=== PATIENT | female | born 1955 | race Caucasian/White ===

== ENCOUNTER 2017-12-28 22:14 | Emergency (ER) | payer OTHER ==
[2017-12-28 22:23] VITALS: BP 135/77; PULSE 82; TEMP 98; BMI 32.9
--- NOTE | 2017-12-29 00:26 | PDOC ---
History of Present Illness - General Chief Complaint: Pain Stated Complaint: PAIN Time Seen by Provider: 12/29/17 00:12 History Source: Patient, Family - History of Present Illness Initial Comments: 12/29/17 00:20 62yoF undergoing extensive outpatient w/u for chronic refulx, followed by GI. Harris for severe reflux pain. Pt recently had an Omeprazole Rx filled by her pharmacy, but she is stating she is concerned hat the pill looks very different from prior omeprazole prescriptions and it is not helping her pain at all. She is seeking pain relief for her typical stomach acid pain. Pill ID shows that instead of omeprazole, pt has a bottle of gabapentin 300mg capsules. Pt also states that she has been on Flagyl but didn't realize she was supposed to take the medication TID, has only been taking once daily. Only 3 tabs left in bottle. pmhx : known gallstones and is undergoing outaptient eval for elective cholecystectomy. Obesity. no cig/etoh/illicits NKDA Past History - Past Medical History Allergies/Adverse Reactions: Allergies Allergy/AdvReac Type Severity Reaction Status Date / Time No Known Allergies Allergy Verified 12/28/17 22:23 Home Medications: Ambulatory Orders Famotidine [Pepcid] 20 mg PO 12/28/17 Hyoscyamine Odt [Levsin Odt -] 0.125 mg PO DAILY 12/28/17 Metoclopramide HCl [Reglan] 5 mg PO 12/28/17 Metoprolol Succinate [Toprol Xl] 50 mg PO 12/28/17 Omeprazole 40 mg PO 12/28/17 Potassium Chloride 20 meq PO 12/28/17 metroNIDAZOLE [Flagyl -] 250 mg PO TID 12/28/17 Omeprazole 40 mg PO DAILY 14 Days #14 capsule. 12/29/17 - Suicide/Smoking/Psychosocial Hx Smoking History: Never smoked Have you smoked in the past 12 months: No Information on smoking cessation initiated: No Hx Alcohol Use: No Drug/Substance Use Hx: No Review of Systems - Review of Systems All Other Systems: Reviewed and Negative *Physical Exam - Vital Signs Last Vital Signs Temp Pulse Resp BP Pulse Ox 98.0 F 82 16 135/77 98 12/28/17 22:20 12/28/17 22:20 12/28/17 22:20 12/28/17 22:20 12/28/17 22:20 - Physical Exam Comments: 12/29/17 00:24 NAD, well appearing EOMI, JERMAINE MMM RRR CTABL soft NTND, no de la rosa's, no guarding/rebound no edema, no rash, WWP neuro grossly intact A&O x 3. Medical Decision Making - Medical Decision Making 12/29/17 00:24 62yoF w/ incorrect medication refill by her pharmacy (given gabapentin instead of nexium) and not taking her abx (flagyl) correctly for chronic GI distress presnets seeking acid control. 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 - DC. = 12/29/17 01:29 attempted to notify pt's pharmacy of medication mistake [facility], , [address] [place] [address]. No answering machine at Pharmacy. Unable to leave a message. *DC/Admit/Observation/Transfer - Prescriptions Prescriptions: Omeprazole 40 mg PO DAILY 14 Days #14 capsule. - Referrals Referrals: Gerald Beltran MD [Primary Care Provider] - - Patient Instructions - Post Discharge Activity
[2017-12-29] MEDS ORDERED: PANTOPRAZOLE 40 MG TABLET (FP) PO ONE (00:27)
[2017-12-29] MEDS ORDERED: LIDOCAINE VISCOUS 2% ORAL/TOP 20 ML UNIT-DOSE CUP MM ONE (00:27)
[2017-12-29] MEDS ORDERED: MAG HYDROX/AL HYDROX/SIMETH 30 ML UNIT-DOSE CUP PO ONE (00:27)
[2017-12-29] MEDS ORDERED: LIDOCAINE VISCOUS 2% ORAL/TOP 20 ML UNIT-DOSE CUP ONE (01:33)
[2017-12-29] MEDS ORDERED: PANTOPRAZOLE 40 MG TABLET (FP) ONE (01:33)
[2017-12-29] MEDS ORDERED: MAG HYDROX/AL HYDROX/SIMETH 30 ML UNIT-DOSE CUP ONE (01:35)
== END 2017-12-29 04:56 | disposition left against medical advice (07) ==
LOC: JER 22:14
DX: K21.9 Gastro-esophageal reflux disease without esophagitis (principal)
CPT/HCPCS: 99282-25

== ENCOUNTER 2018-01-25 06:18 | Day surgery (SDC) | payer OTHER ==
[2018-01-24 11:53] VITALS: BMI 34.3
[2018-01-25] MEDS ORDERED: fentaNYL CITRATE 250 MCG/5 ML VIAL ONE (07:25)
[2018-01-25] MEDS ORDERED: MIDAZOLAM HCL 2 MG/2 ML SINGLE DOSE VIAL ONE (07:25)
[2018-01-25] MEDS ORDERED: SUCCINYLCHOLINE CHLORIDE 200 MG/10 ML VIAL ONE (07:25)
[2018-01-25] MEDS ORDERED: PROPOFOL 20 ML ONE ×3 (07:25)
[2018-01-25] MEDS ORDERED: ROCURONIUM BROMIDE 50 MG/5 ML VIAL ONE ×2 (07:25→08:33)
[2018-01-25] MEDS ORDERED: BUPIVACAINE HCL/PF 0.5% (5MG/ML) 10 ML VIAL ONE (07:50)
[2018-01-25] MEDS ORDERED: DESFLURANE GAS 240 ML BOTTLE IH ONE (08:08)
--- NOTE | 2018-01-25 08:08 | HP ---
History & Physical Update - History History: No Change - Physical Physical: No Change - Assessment Assessment: No Change - Plan Plan: No Change
[2018-01-25] MEDS ORDERED: ceFAZolin SODIUM 1 GM VIAL ONE (08:22)
[2018-01-25] MEDS ORDERED: DEXAMETHASONE SOD PHOSPHATE 4 MG/1 ML VIAL ONE (08:22)
[2018-01-25] MEDS ORDERED: KETOROLAC TROMETHAMINE 30 MG/1 ML VIAL ONE (08:22)
[2018-01-25] MEDS ORDERED: ceFAZolin SODIUM 1 GM VIAL IVPB ONE (08:40)
[2018-01-25] MEDS ORDERED: BUPIVACAINE HCL/PF (5 MG/ML) 30 ML VIAL IJ ONE ×3 (08:45)
--- NOTE | 2018-01-25 10:47 | OP ---
Operative Note - Note: Operative Date: 01/25/18 Pre-Operative Diagnosis: chronic cholecystitis and ventral hernias Operation: Laparoscopic cholecystectomy, NICK, and epigastric ventral hernia repair with Phasix mesh Findings: large GB with dense omental adhesions, 2 epigastric hernias with incarcerated omentum Post-Operative Diagnosis: Same as Pre-op (omental adhesions) Surgeon: Paul Quintana Skin Pass Operator: Svetlana Paul Anesthesia: General Specimens Removed: gallbladder Estimated Blood Loss (mls): 5 Operative Report Dictated: Yes
[2018-01-25] MEDS ORDERED: NEOSTIGMINE METHYLSULFATE 0.5 MG/ML - 10 ML MDV ONE (10:51)
[2018-01-25] MEDS ORDERED: GLYCOPYRROLATE 0.2 MG/1 ML VIAL ONE (10:52)
--- NOTE | 2018-01-25 11:31 | OP ---
DATE OF OPERATION: 01/25/2018 PROCEDURE: Laparoscopic lysis of adhesions, cholecystectomy, ventral hernia repaired with Phasix mesh. PREOPERATIVE DIAGNOSIS: Symptomatic cholelithiasis and ventral epigastric hernias. POSTOPERATIVE DIAGNOSIS: Symptomatic cholelithiasis and epigastric (2) ventral hernias and intraabdominal adhesions. SURGEON: Paul Quintana MD CARE SPECIALIST: MIKI Wolfe ANESTHESIA: General endotracheal. FINDINGS ON PROCEDURE: This is a 62-year-old female who presents with more than 1-year history of right upper quadrant and right paraumbilical pain. On physical examination, patient is obese and has mild right paraumbilical and right upper quadrant tenderness. Preoperative ultrasound revealed gallbladder with multiple stones, and due to suspicion for ventral hernia, a CT scan was done, which showed 2 epigastric umbilical ventral hernias. So, patient was advised removal of the gallbladder and at the same time repair of the hernias with mesh, and consent was obtained after discussing the risks, benefits, and alternatives of the procedure. DESCRIPTION OF PROCEDURE: Patient was brought to the operating room and placed in supine position. General endotracheal anesthesia was administered. The right arm was tucked to the side. The abdomen was prepped and draped in the usual sterile fashion. Using 0.5% Marcaine, local anesthesia was administered to the proposed incision sites. The peritoneal cavity was entered using the Optiview technique via a 5-mm umbilical incision using a 5-mm 0-degree scope inserted in the 5-mm optical port. Pneumoperitoneum was established. The peritoneal cavity was carefully inspected and was noted to be free of inadvertent injury. Patient at this point was already in reverse Trendelenburg [id number] position. Dense omental adhesions to the gallbladder were encountered. The fundus was cleared of adhesions and grasped. The fundus was retracted anterior-superiorly, taking down of sharp lysis of adhesions, using the hook dissector connected to monopolar cautery was done to clear the gallbladder of these omental adhesions. This was done until the infundibulum was identified. The infundibulum was grasped and retracted inferolaterally. Further dissection using combined peanut dissector, hook dissector, and [place] dissector was done to clear the hepatocystic triangle of visceral fat. The cystic duct and cystic artery were eventually identified, and a window was made behind the cystic duct and the cystic artery and gallbladder wall and the liver bed to create the critical view of safety. After this, the cystic duct and cystic artery were clipped at 3 points followed by transection 2 clips at the cystic duct and cystic artery stump. The gallbladder was then resected from its bed in antegrade fashion using the hook dissector connect to monopolar cautery. The gallbladder was placed in an Endobag and extracted via the right subcostal 12-mm port. Afterwards, patient was placed flat and stayed in [id number] position. A 5- mm port was placed in the left lower quadrant. The hernia repair was commenced by taking down the incarcerated omentum from the hernia sac. Two hernias were noted, one at the midline, which was about 3 cm in diameter. The smaller one to the left of midline was about 1.5 cm in diameter. Using the suture passer technique with the Nikko-Kindra needle, the hernia defects were primarily closed with V-Loc No. 1 non-absorbable suture. Afterwards, a 6 x 4 inch Phasix mesh was deployed with its adhesion barrier coating facing the omentum was done. The Phasix mesh was then tacked to the posterior abdominal wall with the AbsorbaTack device. After the deployment was deemed satisfactory, the gallbladder bed was again inspected and was noted to be free of active bleeding and the clips were noted to be intact. The pneumoperitoneum was then evacuated, and the ports were removed. The wounds were closed with subcuticular Biosyn 4-0 sutures, then, reinforced with Dermabond. The patient was successfully extubated and transferred to the post-anesthesia care unit in satisfactory condition. ESTIMATED BLOOD LOSS: About 5 mL. WOUND CLASS: Clean. The patient received 2 g of Ancef prior to the start of the procedure. Darren [id number] MTDMigdalia
--- NOTE | 2018-01-25 11:36 | SURG ---
Surgery Carrier Operator Note Carrier Operator: Svetlana Paul PA-C Date of Service: 01/25/18 Diagnosis: chronic cholecystitis and ventral hernias Procedure: Laparoscopic cholecystectomy, NICK, and epigastric ventral hernia repair with Phasix mesh I was present for the entirety of the operative procedure. For further detail, please refer to operative report. Visit type - Case Type Case Type: Scheduled - Emergency Emergency Visit: No - New patient This patient is new to me today: Yes Date on this admission: 01/25/18
[2018-01-25] MEDS: LACTATED RINGERS SOLUTION 1,000 ML IV SCH ×2 (13:45→14:38)
[2018-01-25] MEDS: oxyCODONE HCL 5 MG TABLET PO PRN ×2 (14:32→17:58)
[2018-01-25] MEDS: ONDANSETRON 4 MG/2 ML VIAL IVPUSH PRN ×2 (16:03→18:13)
[2018-01-25] MEDS ORDERED: ONDANSETRON 4 MG/2 ML VIAL IVPUSH ONE (19:00)
[2018-01-26] MEDS: LACTATED RINGERS SOLUTION 1,000 ML IV SCH (00:07)
[2018-01-26] MEDS: oxyCODONE HCL 5 MG TABLET PO PRN ×3 (03:02→16:32)
[2018-01-26] MEDS: ONDANSETRON 4 MG/2 ML VIAL IVPUSH PRN (07:16)
[2018-01-26] MEDS ORDERED: PANTOPRAZOLE 40 MG TABLET (FP) PO ONE (10:04)
[2018-01-26 14:47] VITALS: BP 114/66; PULSE 78; TEMP 97.7
--- NOTE | 2018-01-28 18:07 | PATH ---
Surgical Pathology Report Patient Name: JAMES GUIDRY [facility]. Rec. #: [id number] /Age/Gender: 1955 (Age: 62) / F Account: [id number] Location: AMBULATORY SURG Taken: 01/25/2018 Received: 01/25/2018 Reported: 01/28/2018 Physicians: Paul Quintana M.D. Specimen(s) Received GALLBLADDER Clinical History Ventral hernia, chronic cholecystitis Final Diagnosis GALLBLADDER, LAPAROSCOPIC CHOLECYSTECTOMY: ACUTE AND CHRONIC CHOLECYSTITIS, CHOLESTEROLOSIS, AND CHOLELITHIASIS. Electronically Signed Aye Lan M.D. Gross Description Received in formalin, labeled "gallbladder," is an 8.7 x 3.2 x 3.2 cm. gallbladder with a 0.2 cm. in length portion of cystic duct attached. The outer surface is finnegan green and varies from smooth to shaggy. The lumen contains green, tenacious bile as well as a single yellow, irregular cholelith measuring 1.5 cm in greatest dimension. The mucosa is finnegan with gold cholesterol stippling. The wall of the gallbladder measures 0.1 cm. in thickness. Plywood Layup Line Back Feeder sections are submitted in one cassette. /01/25/201801/25/2018
== END 2018-01-26 19:50 | disposition home or self-care (01) ==
LOC: JASU-SURG 06:18 → JASUSAT 06:18 → J6S 14:17 → JASUSAT 01-26 19:50
PROVIDERS: ATTEND Surgery
PROC: 0FT44ZZ Resection of Gallbladder, Percutaneous Endoscopic Approach (ICD-10-PCS; principal; 2018-01-25 08:00)
PROC: 0WUF4JZ Supplement Abdominal Wall with Synthetic Substitute, Percutaneous Endoscopic Approach (ICD-10-PCS; 2018-01-25 08:00)
DX: K80.80 Other cholelithiasis without obstruction (principal); K43.9 Ventral hernia without obstruction or gangrene; K66.0 Peritoneal adhesions (postprocedural) (postinfection)
CPT/HCPCS: 88304-TC; 94760; 97116-GP; 97161-GP

== ENCOUNTER 2019-03-17 18:23 | Emergency (ER) | payer OTHER ==
--- NOTE | 2019-03-17 18:27 | PDOC ---
Rapid Medical Evaluation Medical Evaluation: Allergies Allergy/AdvReac Type Severity Reaction Status Date / Time No Known Allergies Allergy Verified 01/25/18 06:59 I have performed a brief in-person evaluation of this patient. The patient presents with a chief complaint of: Got bit by bee today along R middle finger Pertinent physical exam findings: Minimal swelling along palmar aspect of R middle finger, distal phalanx I have ordered the following: nothing The patient will proceed to the ED for further evaluation. 03/17/19 18:25
[2019-03-17 18:29] VITALS: BP 121/70; PULSE 89; TEMP 98; BMI 34.3
--- NOTE | 2019-03-17 18:40 | PDOC ---
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 Past History - Past Medical History Allergies/Adverse Reactions: Allergies Allergy/AdvReac Type Severity Reaction Status Date / Time No Known Allergies Allergy Verified 03/17/19 18:25 Home Medications: Ambulatory Orders Amlodipine Besylate 5 mg PO DAILY 01/25/18 Gabapentin 300 mg PO TID 01/25/18 Metoprolol Succinate 50 mg PO DAILY 01/25/18 Omeprazole 40 mg PO ACBK 01/25/18 Asthma: Yes (during allergy season-not recently) COPD: No Diabetes: Yes (borderline) GI Disorders: Yes (acid reflux) HTN: Yes - Immunization History Immunization Up to Date: Yes - Suicide/Smoking/Psychosocial Hx Smoking History: Never smoked Have you smoked in the past 12 months: No If you are a former smoker, when did you quit?: 10years Hx Alcohol Use: No Drug/Substance Use Hx: No Substance Use Type: None Hx Substance Use Treatment: No Review of Systems - Review of Systems Respiratory: No: Cough, Shortness of Breath, Wheezing Integumentary: No: Rash *Physical Exam - Vital Signs Last Vital Signs Temp Pulse Resp BP Pulse Ox 98.0 F 89 14 121/70 96 03/17/19 18:25 03/17/19 18:25 03/17/19 18:25 03/17/19 18:25 03/17/19 18:25 - Physical Exam Comments: 03/17/19 18:35 HEAD: NC/AT EYES: Conjuntiva clear MS: Full ROM in all joints without edema; There is mild redness on the palmar aspect of the R 3rd finger no FB NEUROLOGIC: No gross sensory or motor deficits, NVID SKIN: Normal color and temperature no lesions or rashes Medical Decision Making - Medical Decision Making 03/17/19 18:37 Localized reaction to a bee sting, recommended localized care *DC/Admit/Observation/Transfer Diagnosis at time of Disposition: Bee sting - Discharge Dispostion Disposition: HOME Condition at time of disposition: Stable Decision to Admit order: No - Referrals Referrals: Myriam Jordan MD [Primary Care Provider] - - Patient Instructions Printed Discharge Instructions: DI for Insect Bites and Stings Additional Instructions: Return to the emergency room should you have further issues. Follow up with your primary care doctor without fail in 1-2 days. Ice for pain every 20 minutes as needed - Post Discharge Activity
== END 2019-03-17 18:45 | disposition home or self-care (01) ==
LOC: JERFT 18:23
DX: T63.441A Toxic effect of venom of bees, accidental (unintentional), initial encounter (principal); M79.644 Pain in right finger(s); Y92.89 Other specified places as the place of occurrence of the external cause; I10 Essential (primary) hypertension; E11.9 Type 2 diabetes mellitus without complications; M79.7 Fibromyalgia; K21.9 Gastro-esophageal reflux disease without esophagitis; Z87.09 Personal history of other diseases of the respiratory system
CPT/HCPCS: 99281-25

== ENCOUNTER 2019-04-14 15:32 | Emergency (ER) | payer OTHER ==
[2019-04-14 15:37] VITALS: BP 138/80; PULSE 84; TEMP 98; BMI 34.3
[2019-04-14] MEDS ORDERED: KETOROLAC TROMETHAMINE 30 MG/1 ML VIAL IM ONE (15:55)
[2019-04-14] MEDS ORDERED: CYCLOBENZAPRINE HCL 10 MG TABLET (FP) PO ONE (15:55)
[2019-04-14] MEDS ORDERED: KETOROLAC TROMETHAMINE 30 MG/1 ML VIAL ONE (15:57)
[2019-04-14] MEDS ORDERED: CYCLOBENZAPRINE HCL 10 MG TABLET (FP) ONE (15:57)
--- NOTE | 2019-04-14 16:02 | PDOC ---
History of Present Illness - General Chief Complaint: Back Pain Stated Complaint: back pain Time Seen by Provider: 04/14/19 15:36 History Source: Patient, Family - History of Present Illness Occurred: reports: other Severity: reports: moderate Pain Location: reports: back Past History - Past Medical History Allergies/Adverse Reactions: Allergies Allergy/AdvReac Type Severity Reaction Status Date / Time No Known Allergies Allergy Verified 04/14/19 15:37 Home Medications: Ambulatory Orders Amlodipine Besylate 5 mg PO DAILY 01/25/18 Gabapentin 300 mg PO TID 01/25/18 Metoprolol Succinate 50 mg PO DAILY 01/25/18 Omeprazole 40 mg PO ACBK 01/25/18 Acetaminophen [Tylenol -] 1,000 mg PO Q6H #30 tablet 04/14/19 Tramadol HCl 50 mg PO Q6H #15 tablet MDD 200mg 04/14/19 Asthma: Yes (during allergy season-not recently) COPD: No Diabetes: Yes (borderline) GI Disorders: Yes (acid reflux) HTN: Yes - Immunization History Immunization Up to Date: Yes - Psycho Social/Smoking Cessation Hx Smoking History: Never smoked Have you smoked in the past 12 months: No If you are a former smoker, when did you quit?: 10years Information on smoking cessation initiated: No Hx Alcohol Use: No Drug/Substance Use Hx: No Substance Use Type: None Hx Substance Use Treatment: No Review of Systems - Review of Systems Constitutional: No: Chills, Fever ABD/GI: No: Nausea, Vomiting, Abdominal cramping : No: Burning, Dysuria, Flank Pain, Hematuria Musculoskeletal: Yes: Back Pain. No: Neck Pain Neurological: No: Numbness, Tingling, Weakness *Physical Exam - Vital Signs Last Vital Signs Temp Pulse Resp BP Pulse Ox 98 F 84 19 138/80 99 04/14/19 15:36 04/14/19 15:36 04/14/19 15:36 04/14/19 15:36 04/14/19 15:36 - Physical Exam General Appearance: Yes: Appropriately Dressed, Mild Distress HEENT: positive: Normal Voice Neck: positive: Supple Respiratory/Chest: negative: Respiratory Distress Gastrointestinal/Abdominal: positive: Soft. negative: Tender, Increased Bowel Sounds Musculoskeletal: positive: Vertebral Tenderness (to L lower back). 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 No leg pain , sensory changes, lower extremity weakness, saddle anesthesia or bowel or bladder incontinence. No acute symptoms nausea vomiting fever or chills. No history of kidney stones. Using icy hot, applying diclofenac's ointment and taking Flexeril with no relief see exam Acute on chronic LBP No red flags at this time -Dc w/ pain control -Spine f/u given Discharge - Discharge Information Problems reviewed: Yes Clinical Impression/Diagnosis: Chronic low back pain Qualifiers: Back pain laterality: left Sciatica presence: without sciatica Qualified Code(s ): M54.5 - Low back pain Condition: Good Disposition: HOME - Additional Discharge Information Prescriptions: Acetaminophen [Tylenol -] 1,000 mg PO Q6H #30 tablet Tramadol HCl 50 mg PO Q6H #15 tablet MDD 200mg - Follow up/Referral Referrals: Azam Smith MD [Staff Physician] - - Patient Discharge Instructions Patient Printed Discharge Instructions: Low Back Pain Additional Instructions: Take Tylenol and Flexeril as directed and if meds do not relieve pain, you can take 1 tramadol. Tramadol can make you drowsy so only take while home Please follow-up with Dr. Azam smith of ortho spine for your chronic back pain - Post Discharge Activity
== END 2019-04-14 16:31 | disposition home or self-care (01) ==
LOC: JERFT 15:32
PROC: 3E0233Z Introduction of Anti-inflammatory into Muscle, Percutaneous Approach (ICD-10-PCS; principal; 2019-04-14)
DX: M54.5 Low back pain (principal); I10 Essential (primary) hypertension; M79.7 Fibromyalgia; M12.9 Arthropathy, unspecified; K21.9 Gastro-esophageal reflux disease without esophagitis; E11.9 Type 2 diabetes mellitus without complications; Z87.09 Personal history of other diseases of the respiratory system
CPT/HCPCS: 96372; 99281-25

== ENCOUNTER 2019-06-28 18:32 | Emergency (ER) | payer OTHER ==
[2019-06-28 18:40] VITALS: TEMP 98.5; BMI 33.3
--- NOTE | 2019-06-28 19:35 | PDOC ---
History of Present Illness - General Chief Complaint: Cold Symptoms Stated Complaint: FLU LIKE SYMPTOMS Time Seen by Provider: 06/28/19 19:33 History Source: Patient Exam Limitations: No Limitations - History of Present Illness Initial Comments: 06/28/19 19:33 PCP: Dr. Jordan HPI: 63yo F with PMH HTN, Asthma, GERD, pre-DM, and fibromyalgia presents with fever, chills, nausea, decreased appetite, body aches, chest and nasal congestion, with productive cough (green sputum) for 5 days. Patient also had 4 days of diarrhea, now resolved. Poor food / water intake 2/2 nausea. Complains primarily of heaviness and congestion now. Does not take medications at home, dislikes medication and reports she will try oranges to feel betters. Inquires about antibiotics. Reports that she did receive her flu shot this year. No sick contacts at home. All: NKDA Meds: per cahrt PMH: as above PSH: denies Past History - Travel Traveled outside of the country in the last 30 days: No Close contact w/someone who was outside of country & ill: No - Past Medical History Allergies/Adverse Reactions: Allergies Allergy/AdvReac Type Severity Reaction Status Date / Time No Known Allergies Allergy Verified 06/29/19 01:11 Home Medications: Ambulatory Orders Acetaminophen [Tylenol -] 1,000 mg PO Q6H PRN 06/28/19 Gabapentin [Neurontin -] 400 mg PO Q8H 06/28/19 Hydrochlorothiazide 25 mg PO DAILY 06/28/19 Metoprolol Succinate [Toprol Xl -] 50 mg PO DAILY 06/28/19 Omeprazole 40 mg PO DAILY 06/28/19 Tramadol HCl 50 mg PO BID PRN 06/28/19 Omeprazole 20 mg PO DAILY #30 capsule. 06/29/19 Asthma: Yes (during allergy season-not recently) COPD: No Diabetes: Yes (borderline) GI Disorders: Yes (acid reflux) HTN: Yes - Immunization History Immunization Up to Date: Yes - Psycho Social/Smoking Cessation Hx Smoking History: Former smoker Have you smoked in the past 12 months: No If you are a former smoker, when did you quit?: 10years Information on smoking cessation initiated: No Hx Alcohol Use: No Drug/Substance Use Hx: No Substance Use Type: None Hx Substance Use Treatment: No Review of Systems - Review of Systems Able to Perform ROS?: Yes Is the patient limited Occitan proficient: Yes Constitutional: Yes: Chills, Fever. No: Diaphoresis, Night Sweats, Unintentional Wgt. Loss, Unexplained wgt Loss HEENTM: Yes: Symptoms Reported, See HPI, Nose Congestion. No: Eye Pain, Recent change in vision, Throat Pain, Throat Swelling, Difficulty Swallowing Respiratory: Yes: Cough, Productive cough. No: Orthopnea, Shortness of Breath, Wheezing, Hemoptysis Cardiac (ROS): No: Chest Pain, Edema, Irregular Heart Rate, Palpitations, Syncope, Chest Tightness ABD/GI: Yes: Diarrhea (4x, resolved for 24hours), Nausea, Poor Appetite, Poor Fluid Intake. No: Constipated, Vomiting : No: Burning, Dysuria, Discharge, Frequency, Incontinence, Urgency Musculoskeletal: Yes: Muscle Pain (myalgias). No: Back Pain, Muscle Weakness, Neck Pain Integumentary: No: Dryness, Erythema, Pruritus, Rash Neurological: No: Headache, Numbness, Tingling, Weakness Psychiatric: No: Anxiety, Depression, Emotional Problems Endocrine: No: Flushing, Intolerance to Cold, Intolerance to Heat, Change in Weight Hematologic/Lymphatic: No: Anemia, Blood Clots, Easy Bleeding, Easy Bruising All Other Systems: Reviewed and Negative *Physical Exam - Vital Signs Last Vital Signs Temp Pulse Resp BP Pulse Ox 98.5 F 99 H 18 135/85 98 06/28/19 18:35 06/28/19 18:35 06/28/19 18:35 06/28/19 18:35 06/28/19 18:35 - Physical Exam 06/28/19 19:34 Vitals reviewed, AFVSS (HR 99) WDWN woman, appears stated age, no acute distress, wearing a mask NCAT, EOMI, eyes non-injected without discharge, dry MM, throat non-erythematous , no rhinorrhea RRR, nl s1s2, no murmurs appreciated, normal chest wall CTABL, normal WOB, no cough during encounter, no wheezes / rales / rhonchi Soft, TTP epigastrium and suprapubic, non-distended No CVA tenderness 2+ radial and PT pulses, no edema, no clubbing / cyanosis CN grossly intact, MAEE, normal sensation ED Treatment Course - LABORATORY CBC & Chemistry Diagram: 12/21/19 20:00 06/28/19 20:00 Medical Decision Making - Medical Decision Making 06/28/19 20:11 63yo F with PMH HTN, Asthma, GERD, pre-DM, and fibromyalgia presents with flu- like symptoms for 5 days with some resolution today. - Rapid flu testing - 1L IVF - CBC, CMP, UA - CXR 06/28/19 20:48 - Leukocytosis of 12.0 - CMP wnl - Influenza testing pending - CXR without effusion, infiltrate, pneumothorax, mediastinal changes, or bony pathology 06/28/19 21:03 - Rapid Flu Negative 06/28/19 22:13 - UA Negative - Tylenol with codeine, saline nebs - Patient improving Dispo: Home Discharge - Discharge Information Problems reviewed: Yes Clinical Impression/Diagnosis: URI (upper respiratory infection) Qualifiers: URI type: unspecified URI Qualified Code(s): J06.9 - Acute upper respiratory infection, unspecified Condition: Improved Disposition: HOME - Admission No - Follow up/Referral Referrals: Myriam Jordan MD [Primary Care Provider] - - Patient Discharge Instructions Patient Printed Discharge Instructions: DI for Viral Upper Respiratory Infection -- Adult Additional Instructions: You were seen and evaluated at [facility] for flu-like symptoms. You can use over the counter medications as directed on the package labels for your comfort - Tylenol for fever and pain, decongestants for your chest / nasal congestion. There is no benefit of antibiotics for a viral syndrome, the treatment is symptom management, rest, fluids, and time. Please follow up with your primary care doctor in the 2-3 days if your symptoms fail to resolve. Return to the ED for any new or worsening symptoms including but not limited to : nausea/vomiting that prevents you from drinking water or taking medications, difficulty breathing, fever non-responsive to tylenol. - Post Discharge Activity
[2019-06-28] MEDS ORDERED: SODIUM CHLORIDE 0.9% 500 ML INFUS.BAG IV ONE (20:01)
[2019-06-28 20:17] LABS: BASO % 0.7 % (0-2.0); EOS % 1.6 % (0-4.5); HEMATOCRIT 37.4 % (32.4-45.2); HEMOGLOBIN 12.3 GM/dL (10.7-15.3); LYMPH % 13.2 % (8-40); MCH 26.9 pg (25.7-33.7); MCHC 32.9 g/dl (32.0-36.0); MEAN CELL VOLUME 81.7 fl (80-96); MONO % 7.7 % (3.8-10.2); NEUT % 76.8 % (42.8-82.8); PLATELET COUNT 266 K/MM3 (134-434); RBC 4.58 M/mm3 (3.60-5.2); RDW 14.7 % (11.6-15.6)
[2019-06-28 20:39] LABS: ALBUMIN 3.8 g/dl (3.4-5.0); BILIRUBIN,TOTAL 0.2 mg/dL (0.2-1); BLOOD UREA NITROGEN 13.6 mg/dL (7-18); CALCIUM 9.1 mg/dL (8.5-10.1); CREATININE 0.6 mg/dL (0.55-1.3); POTASSIUM 3.7 mmol/L (3.5-5.1); TOT PROT 7.5 g/dl (6.4-8.2)
[2019-06-28] MEDS ORDERED: ACETAMINOPHEN WITH CODEINE 300MG/30MG TABLET PO ONE (21:17)
[2019-06-28] MEDS ORDERED: SODIUM CHLORIDE FOR INHALATION 3 ML VIAL.NEB IH ONE (21:17)
--- NOTE | 2019-06-28 21:17 | PDOC ---
Documentation entered by Ana Galloway SCRIBE, acting as scribe for Pablo Walker MD. Pablo Walker MD: This documentation has been prepared by the Nilesh dos santos Xhesika, SCRIBE, under my direction and personally reviewed by me in its entirety. I confirm that the documentation accurately reflects all work, treatment, procedures, and medical decision making performed by me. Attending Attestation - Resident Resident Name: LadariusDany - ED Attending Attestation I have performed the following: I have examined & evaluated the patient, The case was reviewed & discussed with the resident, I agree w/resident's findings & plan, Exceptions are as noted - HPI HPI: 06/28/19 21:18 63 F with h/o HTN, asthma, GERD, DM, fibromyalgia presenting to ED with fevers, chills, bodyaches, cough, nausea. Pt states that she has felt ill for 5 days. She had diarrhea initially, but this resolved. She still endorses nausea without vomiting. Pt also reports cough productive of greenish sputum. Denies CP /SOB. Denies leg swelling. No known sick contacts at home. - Physicial Exam PE: 06/28/19 21:23 "GENERAL: Awake, alert, and fully oriented, in no acute distress. HEAD: No signs of trauma EYES: PERRLA, EOMI, sclera anicteric, conjunctiva clear ENT: Auricles normal inspection, hearing grossly normal, nares patent, oropharynx clear without exudates. Moist mucosa NECK: Nontender, no stepoffs, Normal ROM, supple, no lymphadenopathy, JVD, or masses LUNGS: Breath sounds equal, clear to auscultation bilaterally. No wheezes, and no crackles HEART: Regular rate and rhythm, normal S1 and S2, no murmurs, rubs or gallops ABDOMEN: Soft, nontender, normoactive bowel sounds. No guarding, no rebound. No masses EXTREMITIES: Normal range of motion, no edema. No clubbing or cyanosis. No cords, erythema, or tenderness NEUROLOGICAL: Cranial nerves II through XII intact. 5/5 strength and sensation in all extremities, Normal speech, normal gait, normal cerebellar function SKIN: Warm, Dry, normal turgor, no rashes or lesions noted. - Medical Decision Making 06/28/19 21:23 63 F with flu-like symptoms. Pt is well appearing with normal vitals. - Labs - CXR - Flu swab - Supportive care 06/28/19 22:06 Labs wnl CXR clear on my read Pt is well appearing, with normal vitals. Clinically stable for DC at this time. I discussed the physical exam findings, ancillary test results and final diagnoses with the patient. I answered all of the patient's questions. The patient was satisfied with the care received and felt comfortable with the discharge plan and treatment plan. The patient agrees to follow up with the primary care physician within 24-72 hours.
[2019-06-28] MEDS ORDERED: ACETAMINOPHEN WITH CODEINE 300MG/30MG TABLET ONE (21:38)
[2019-06-28 22:04] LABS: EPI CELLS 0.6 /HPF (0-5/HPF); HYALINE CASTS 0 /lpf (0-8); PH,URINE 7.5 (5.0-8.0); URINE APPEARANCE CLEAR; URINE BACTERIA 119.9 /hpf (NEGATIVE); URINE BILIRUBIN NEGATIVE (NEGATIVE); URINE COLOR YELLOW; URINE GLUCOSE (UA) NEGATIVE (NEGATIVE); URINE KETONE NEGATIVE (NEGATIVE); URINE LEUK ESTERASE NEGATIVE (NEGATIVE); URINE NITRITE NEGATIVE (NEGATIVE); URINE PROTEIN NEGATIVE (NEGATIVE); URINE RBC 0 /hpf (0-4); URINE UROBILINOGEN 0.2 mg/dL (0.2-1.0); URINE WBC 1 /hpf (0-5)
[2019-06-28 22:33] VITALS: BP 136/82; PULSE 86
== END 2019-06-28 22:42 | disposition home or self-care (01) ==
LOC: JER 18:32
PROC: 3E0F7GC Introduction of Other Therapeutic Substance into Respiratory Tract, Via Natural or Artificial Opening (ICD-10-PCS; principal; 2019-06-28)
DX: J06.9 Acute upper respiratory infection, unspecified (principal); J45.909 Unspecified asthma, uncomplicated; I10 Essential (primary) hypertension; E11.9 Type 2 diabetes mellitus without complications; E78.00 Pure hypercholesterolemia, unspecified
CPT/HCPCS: 36415; 71046-TC-FY; 80053; 81003; 85025; 87804; 99283-25

== ENCOUNTER 2019-06-29 00:19 | Emergency (ER) | payer OTHER ==
--- NOTE | 2019-06-29 01:04 | PDOC ---
History of Present Illness - General Stated Complaint: ABD PAIN Time Seen by Provider: 06/29/19 01:04 Past History - Past Medical History Allergies/Adverse Reactions: Allergies Allergy/AdvReac Type Severity Reaction Status Date / Time No Known Allergies Allergy Verified 06/28/19 19:34 Home Medications: Ambulatory Orders Acetaminophen [Tylenol -] 1,000 mg PO Q6H PRN 06/28/19 Gabapentin [Neurontin -] 400 mg PO Q8H 06/28/19 Hydrochlorothiazide 25 mg PO DAILY 06/28/19 Metoprolol Succinate [Toprol Xl -] 50 mg PO DAILY 06/28/19 Omeprazole 40 mg PO DAILY 06/28/19 Tramadol HCl 50 mg PO BID PRN 06/28/19 Asthma: Yes (during allergy season-not recently) COPD: No Diabetes: Yes (borderline) GI Disorders: Yes (acid reflux) HTN: Yes - Immunization History Immunization Up to Date: Yes - Psycho Social/Smoking Cessation Hx Smoking History: Former smoker Have you smoked in the past 12 months: No If you are a former smoker, when did you quit?: 10years Hx Alcohol Use: No Drug/Substance Use Hx: No Substance Use Type: None Hx Substance Use Treatment: No Discharge - Follow up/Referral Referrals: Myriam Jordan MD [Primary Care Provider] - - Patient Discharge Instructions - Post Discharge Activity
[2019-06-29] MEDS ORDERED: FAMOTIDINE 10 MG TABLET PO ONE (01:08)
[2019-06-29] MEDS ORDERED: MAG HYDROX/AL HYDROX/SIMETH 30 ML UNIT-DOSE CUP PO ONE (01:08)
--- NOTE | 2019-06-29 01:19 | PDOC ---
History of Present Illness - General Chief Complaint: Pain, Acute Stated Complaint: ABD PAIN Time Seen by Provider: 06/29/19 01:04 - History of Present Illness Initial Comments: 06/29/19 01:16 63 F seen here earlier this evening for URI-like symptoms, returning to ED for abdominal pain. Pt initially presented with cough, bodyaches, fevers. Labwork and XR obtained were unremarkable. Pt was given a saline neb and tylenol #3 for her cough. Pt states that shortly after taking the tylenol #3, she developed epigastric pain. She notes that she has a h/o gastritis, for which she normally takes omeprazole. However, she has not taken it in 5 days due to having diarrhea. Pt states that the pain she has now is similar to her usual gastritis pain. Denies N/V. Denies diarrhea/constipation. Denies CP/SOB. Past History - Past Medical History Allergies/Adverse Reactions: Allergies Allergy/AdvReac Type Severity Reaction Status Date / Time No Known Allergies Allergy Verified 06/29/19 01:11 Home Medications: Ambulatory Orders Acetaminophen [Tylenol -] 1,000 mg PO Q6H PRN 06/28/19 Gabapentin [Neurontin -] 400 mg PO Q8H 06/28/19 Hydrochlorothiazide 25 mg PO DAILY 06/28/19 Metoprolol Succinate [Toprol Xl -] 50 mg PO DAILY 06/28/19 Omeprazole 40 mg PO DAILY 06/28/19 Tramadol HCl 50 mg PO BID PRN 06/28/19 Omeprazole 20 mg PO DAILY #30 capsule. 06/29/19 Asthma: Yes (during allergy season-not recently) COPD: No Diabetes: Yes (borderline) GI Disorders: Yes (acid reflux) HTN: Yes - Immunization History Immunization Up to Date: Yes - Psycho Social/Smoking Cessation Hx Smoking History: Never smoked Have you smoked in the past 12 months: No If you are a former smoker, when did you quit?: 10years Information on smoking cessation initiated: No Hx Alcohol Use: No Drug/Substance Use Hx: No Substance Use Type: None Hx Substance Use Treatment: No Review of Systems - Review of Systems Comments:: 06/29/19 01:20 "GENERAL/CONSTITUTIONAL: No fever or chills. No weakness. HEAD, EYES, EARS, NOSE AND THROAT: No change in vision. No ear pain or discharge. No sore throat. CARDIOVASCULAR: No chest pain, no shortness of breath, no loss of consciousness RESPIRATORY: No cough, wheezing, or hemoptysis. GASTROINTESTINAL: + epigastric pain, No nausea, vomiting, diarrhea or constipation. GENITOURINARY: No dysuria, frequency, or change in urination. MUSCULOSKELETAL: No joint or muscle swelling or pain. No neck or back pain. SKIN: No rash NEUROLOGIC: No vertigo, no change in strength/sensation. ENDOCRINE: No increased thirst. No abnormal weight change. HEMATOLOGIC/LYMPHATIC: No anemia, easy bleeding, or history of blood clots. ALLERGIC/IMMUNOLOGIC: No hives or skin allergy. *Physical Exam - Vital Signs Last Vital Signs Temp Pulse Resp BP Pulse Ox 97.6 F 82 20 142/87 99 06/29/19 01:12 06/29/19 01:12 06/29/19 01:12 06/29/19 01:12 06/29/19 01:12 - Physical Exam 06/29/19 01:20 "GENERAL: Awake, alert, and fully oriented, in no acute distress. HEAD: No signs of trauma EYES: PERRLA, EOMI, sclera anicteric, conjunctiva clear ENT: Auricles normal inspection, hearing grossly normal, nares patent, oropharynx clear without exudates. Moist mucosa NECK: Nontender, no stepoffs, Normal ROM, supple, no lymphadenopathy, JVD, or masses LUNGS: Breath sounds equal, clear to auscultation bilaterally. No wheezes, and no crackles HEART: Regular rate and rhythm, normal S1 and S2, no murmurs, rubs or gallops ABDOMEN: + epigastric TTP, normoactive bowel sounds. No guarding, no rebound. No masses EXTREMITIES: Normal range of motion, no edema. No clubbing or cyanosis. No cords, erythema, or tenderness NEUROLOGICAL: Cranial nerves II through XII intact. 5/5 strength and sensation in all extremities, Normal speech, normal gait, normal cerebellar function SKIN: Warm, Dry, normal turgor, no rashes or lesions noted. Medical Decision Making - Medical Decision Making 06/29/19 01:21 63 F with epigastric pain, likely gastritis 2/2 taking medication on empty stomach and noncompliance with her omeprazole. - GI cocktail - EKG - Reassess 06/29/19 01:48 EKG completely normal, no evidence of ischemia Pt reassessed - abdominal pain now completely resolved with GI meds. Repeat abdominal exam now benign. Pt is well appearing, with normal vitals. Clinically stable for DC at this time. I discussed the physical exam findings, ancillary test results and final diagnoses with the patient. I answered all of the patient's questions. The patient was satisfied with the care received and felt comfortable with the discharge plan and treatment plan. The patient agrees to follow up with the primary care physician within 24-72 hours. Discharge - Discharge Information Problems reviewed: Yes Clinical Impression/Diagnosis: Epigastric pain - Follow up/Referral Referrals: Myriam Jordan MD [Primary Care Provider] - - Patient Discharge Instructions Patient Printed Discharge Instructions: DI for Gastritis Additional Instructions: Be sure to take your Omeprazole every day as prescribed. I have sent a refill to your pharmacy. If you experience any recurrent abdominal pain, nausea, vomiting, chest pain, shortness of breath, or any other concerning symptoms, return to the ER immediately. Otherwise, follow up with your pluck trimmer within 1 week for further evaluation. No ER visit is complete without primary care follow up. Follow up with your primary doctor within 48 hours to discuss your evaluation today. - Post Discharge Activity
[2019-06-29] MEDS ORDERED: MAG HYDROX/AL HYDROX/SIMETH 30 ML UNIT-DOSE CUP ONE (01:26)
[2019-06-29] MEDS ORDERED: FAMOTIDINE 10 MG TABLET ONE (01:26)
[2019-06-29 01:29] VITALS: BP 142/87; PULSE 82; TEMP 97.6; BMI 40.0
--- NOTE | 2019-06-29 18:32 | EKG ---
Test Reason : Blood Pressure : / mmHG Vent. Rate : 078 BPM Atrial Rate : 078 BPM P-R Int : 180 ms QRS Dur : 084 ms QT Int : 382 ms P-R-T Axes : 059 053 023 degrees QTc Int : 435 ms NORMAL SINUS RHYTHM NORMAL ECG NO PREVIOUS ECGS AVAILABLE Confirmed by PABLITO BENTLEY MD ([id number]) on 06/29/2019 6:31:29 PM Referred By: Confirmed By:PABLITO BENTLEY MD
== END 2019-06-29 02:05 | disposition home or self-care (01) ==
LOC: JER 00:19
DX: K29.70 Gastritis, unspecified, without bleeding (principal); K21.9 Gastro-esophageal reflux disease without esophagitis; I10 Essential (primary) hypertension; E11.9 Type 2 diabetes mellitus without complications; Z87.09 Personal history of other diseases of the respiratory system; Z91.14 Patient's other noncompliance with medication regimen
CPT/HCPCS: 93005; 93010; 99282-25

== ENCOUNTER 2020-10-13 08:57 | Emergency (ER) | payer OTHER ==
[2020-10-13 09:06] VITALS: BP 131/79; PULSE 83; TEMP 98.5; BMI 36.3
[2020-10-13] MEDS ORDERED: ACETAMINOPHEN 325 MG TABLET (FP) PO ONE (09:26)
[2020-10-13] MEDS ORDERED: KETOROLAC TROMETHAMINE 60 MG/2 ML VIAL IM ONE (10:21)
[2020-10-13] MEDS ORDERED: ACETAMINOPHEN 500 MG TABLET (FP) ONE (10:42)
[2020-10-13] MEDS ORDERED: KETOROLAC TROMETHAMINE 15 MG/ML VIAL ONE (10:42)
== END 2020-10-13 11:25 | disposition home or self-care (01) ==
LOC: JERFT 08:57
PROC: 3E0233Z Introduction of Anti-inflammatory into Muscle, Percutaneous Approach (ICD-10-PCS; principal; 2020-10-13)
DX: M79.671 Pain in right foot (principal)
CPT/HCPCS: 73630-TC-RT-FY; 93971-TC; 96372; 99284-25

== ENCOUNTER 2020-10-29 13:02 | Emergency (ER) | payer OTHER ==
[2020-10-29] MEDS ORDERED: COLCHICINE 0.6 MG TAB PO ONE ×2 (13:47→15:00)
[2020-10-29] MEDS ORDERED: INDOMETHACIN 50 MG CAPSULE PO ONE (14:03)
[2020-10-29 14:07] VITALS: BP 108/69; PULSE 74; TEMP 98.3; BMI 35.2
[2020-10-29] MEDS ORDERED: COLCHICINE 0.6 MG TAB PO SCH (15:00)
== END 2020-10-29 15:25 | disposition home or self-care (01) ==
LOC: JER 13:02
DX: M10.9 Gout, unspecified (principal); M25.571 Pain in right ankle and joints of right foot
CPT/HCPCS: 99283-25

== ENCOUNTER 2021-02-03 11:14 | Emergency (ER) | payer OTHER ==
[2021-02-03 11:23] VITALS: BP 118/78; PULSE 72; TEMP 97.8; BMI 32.2
[2021-02-03] MEDS ORDERED: KETOROLAC TROMETHAMINE 60 MG/2 ML VIAL IM ONE (12:10)
[2021-02-03] MEDS ORDERED: KETOROLAC TROMETHAMINE 30 MG/1 ML VIAL ONE (12:30)
== END 2021-02-03 13:34 | disposition home or self-care (01) ==
LOC: JER 11:14
PROC: 3E0233Z Introduction of Anti-inflammatory into Muscle, Percutaneous Approach (ICD-10-PCS; principal; 2021-02-03)
DX: M75.42 Impingement syndrome of left shoulder (principal)
CPT/HCPCS: 73030-TC-LT-FY; 96372; 99284-25

== ENCOUNTER 2021-02-18 10:28 | Emergency (ER) | payer OTHER ==
[2021-02-18 10:49] VITALS: BP 123/84; PULSE 81; BMI 29.2
[2021-02-18 10:55] VITALS: TEMP 98.2
== END 2021-02-18 11:33 | disposition home or self-care (01) ==
LOC: JERFT 10:28
PROC: 0H9FXZZ Drainage of Right Hand Skin, External Approach (ICD-10-PCS; principal; 2021-02-18)
DX: L03.011 Cellulitis of right finger (principal)
CPT/HCPCS: 99282-25

== ENCOUNTER 2021-03-16 14:07 | Emergency (ER) | payer OTHER ==
[2021-03-16 14:12] VITALS: BP 146/89; PULSE 81; TEMP 98; BMI 42.5
[2021-03-16 18:06] LABS: BASO % 0.6 % (0-2.0); EOS % 1.7 % (0-4.5); HEMATOCRIT 36.7 % (32.4-45.2); HEMOGLOBIN 12.5 GM/dL (10.7-15.3); LYMPH % 17.2 % (8-40); MCH 28.1 pg (25.7-33.7); MCHC 34.1 g/dl (32.0-36.0); MEAN CELL VOLUME 82.2 fl (80-96); MEAN PLT VOLUME 8.1 fl (7.5-11.1); MONO % 6.4 % (3.8-10.2); NEUT % 74.1 % (42.8-82.8); PLATELET COUNT 253 10^3/uL (134-434); RBC 4.46 M/mm3 (3.60-5.2); RDW 14.9 % (11.6-15.6); WHITE BLOOD COUNT 10.5 K/mm3 (4.0-10.0)
[2021-03-16] MEDS ORDERED: SULFAMETHOXAZOLE/TRIMETHOPRIM 800MG/160MG D.S. TABLET PO ONE (18:21)
[2021-03-16] MEDS ORDERED: CEPHALEXIN MONOHYDRATE 500 MG CAPSULE (UD) PO ONE (18:25)
[2021-03-16 18:27] LABS: ALBUMIN 4.4 g/dl (3.4-5.0); BLOOD UREA NITROGEN 15.8 mg/dL (7-18); CALCIUM 10.1 mg/dL (8.5-10.1)
[2021-03-16 18:31] LABS: CREATININE 0.7 mg/dL (0.55-1.3)
[2021-03-16 18:32] LABS: BILIRUBIN,TOTAL 0.4 mg/dL (0.2-1)
[2021-03-16] MEDS ORDERED: CEPHALEXIN MONOHYDRATE 500 MG CAPSULE (UD) ONE (19:01)
[2021-03-16] MEDS ORDERED: SULFAMETHOXAZOLE/TRIMETHOPRIM 800MG/160MG D.S. TABLET ONE (19:01)
== END 2021-03-16 19:05 | disposition home or self-care (01) ==
LOC: JER 14:07
DX: L03.311 Cellulitis of abdominal wall (principal)
CPT/HCPCS: 36415; 76705-TC; 80053; 85025; 99284-25

== ENCOUNTER 2021-03-21 13:24 | Emergency (ER) | payer OTHER ==
[2021-03-21 13:58] VITALS: BP 117/75; PULSE 87; TEMP 98.4; BMI 33.3
[2021-03-21] MEDS ORDERED: DALBAVANCIN HCL 1,500 MG in DEXTROSE 5%-WATER - 500 ML IVPB ONE (15:13)
[2021-03-21] MEDS ORDERED: DALBAVANCIN HCL 500 MG VIAL (RESTRICTED TO ID ONLY) IVPB ONE (15:32)
[2021-03-21 15:38] LABS: BASO % 0.9 % (0-2.0); EOS % 1.9 % (0-4.5); HEMATOCRIT 36.4 % (32.4-45.2); HEMOGLOBIN 12.5 GM/dL (10.7-15.3); LYMPH % 22.2 % (8-40); MCH 28.7 pg (25.7-33.7); MCHC 34.4 g/dl (32.0-36.0); MEAN CELL VOLUME 83.3 fl (80-96); MEAN PLT VOLUME 8.2 fl (7.5-11.1); MONO % 6.8 % (3.8-10.2); NEUT % 68.2 % (42.8-82.8); PLATELET COUNT 264 10^3/uL (134-434); RBC 4.37 M/mm3 (3.60-5.2); WHITE BLOOD COUNT 8.5 K/mm3 (4.0-10.0)
[2021-03-21 16:00] LABS: ALBUMIN 4.4 g/dl (3.4-5.0); CALCIUM 9.8 mg/dL (8.5-10.1)
[2021-03-21 16:01] LABS: BLOOD UREA NITROGEN 22.1 mg/dL (7-18)
[2021-03-21 16:04] LABS: CREATININE 0.9 mg/dL (0.55-1.3)
[2021-03-21 16:05] LABS: BILIRUBIN,TOTAL 0.3 mg/dL (0.2-1)
== END 2021-03-21 18:20 | disposition home or self-care (01) ==
LOC: JER 13:24
PROC: 3E033GC Introduction of Other Therapeutic Substance into Peripheral Vein, Percutaneous Approach (ICD-10-PCS; principal; 2021-03-21)
DX: L02.211 Cutaneous abscess of abdominal wall (principal); L03.311 Cellulitis of abdominal wall
CPT/HCPCS: 36415; 80053; 85025; 96365; 99284-25; J0875

== ENCOUNTER → 2021-07-15 | Day surgery (SDC) | payer OTHER ==
[2021-07-14 08:28] VITALS: BMI 32.9
[~2021-07-15] MED LIST: ACETAMINOPHEN 500 MG TABLET (FP) PO PRN; ALLOPURINOL 100 MG TABLET (FP) PO SCH; BUPIVACAINE HCL/PF 0.5% (5MG/ML) 10 ML VIAL ONE; BUPIVACAINE LIPOSOME/PF (EXPAREL) 266 MG/20 ML VIAL ONE; DEXAMETHASONE SOD PHOSPHATE 4 MG/1 ML VIAL ONE; DOCUSATE SODIUM 100 MG CAPSULE (FP) PO PRN; DULoxetine HCL 20 MG CAPSULE.DR PO SCH; GLYCOPYRROLATE 0.2 MG/1 ML VIAL ONE; HYDROmorphone HCl 2 MG/ML VIAL ONE; INSULIN SLIDING SCALE (NOVOLOG) 1 VIAL SQ SCH; LACTATED RINGERS SOLUTION 1,000 ML IV SCH; MIDAZOLAM HCL 2 MG/2 ML SINGLE DOSE VIAL ONE; ONDANSETRON 4 MG/2 ML VIAL IVPUSH PRN; PANTOPRAZOLE 40 MG TABLET PO SCH; PATIENT'S OWN MEDICATION (NON-FORMULARY) (Omeprazole [Omeprazole] 20 MG Tablet.Dr) PO SCH; PREGABALIN 50 MG CAPSULE PO SCH; PROMETHAZINE HCL 25 MG/1 ML VIAL IVPUSH PRN; ROCURONIUM BROMIDE 50 MG/5 ML SYRINGE ONE; SENNOSIDES 8.6MG TABLET (FP) PO SCH; amLODIPine BESYLATE 10 MG TABLET (FP) PO SCH; ceFAZolin SODIUM 1 GM VIAL IVPB ONE; ceFAZolin SODIUM 1 GM VIAL ONE; oxyCODONE HCL 5 MG TABLET PO ONE; oxyCODONE HCL 5 MG TABLET PO PRN
[2021-07-15 17:07] VITALS: BP 129/72; PULSE 98; TEMP 98.2
== END | disposition home or self-care (01) ==
LOC: JASUSAT 04:32 → JASU-SURG 04:32
PROVIDERS: ATTEND Surgery
PROC: 0WUF4JZ Supplement Abdominal Wall with Synthetic Substitute, Percutaneous Endoscopic Approach (ICD-10-PCS; principal; 2021-07-15 10:30)
DX: K43.2 Incisional hernia without obstruction or gangrene (principal); E11.9 Type 2 diabetes mellitus without complications; Z79.84 Long term (current) use of oral hypoglycemic drugs
CPT/HCPCS: 82962; 94760

== ENCOUNTER 2023-07-01 10:49 | Emergency (ER) | payer OTHER ==
[2023-07-01 11:07] VITALS: BP 113/69; TEMP 98.6; BMI 32.5
[2023-07-01 12:30] VITALS: PULSE 95; RESP 18
== END 2023-07-01 13:47 | disposition home or self-care (01) ==
LOC: JERFT 10:49
DX: R05.9 Cough, unspecified (principal); R09.81 Nasal congestion; J02.9 Acute pharyngitis, unspecified; J06.9 Acute upper respiratory infection, unspecified; U07.1 COVID-19
CPT/HCPCS: 0241U-QW; 99283-25

== ENCOUNTER 2023-07-02 10:34 | Emergency (ER) | payer OTHER ==
[2023-07-02 10:48] VITALS: BP 123/73; PULSE 85; RESP 20; TEMP 97.8; BMI 32.5
[2023-07-02] MEDS ORDERED: SODIUM CHLORIDE FOR INHALATION 3 ML VIAL.NEB IH ONE (11:17)
== END 2023-07-02 12:38 | disposition home or self-care (01) ==
LOC: JER 10:34 → JERFT 10:34
PROC: 3E0F7GC Introduction of Other Therapeutic Substance into Respiratory Tract, Via Natural or Artificial Opening (ICD-10-PCS; principal; 2023-07-02)
DX: R05.9 Cough, unspecified (principal); U07.1 COVID-19
CPT/HCPCS: 0241U-QW; 71046-TC-FY; 94640; 99284-25